=== PATIENT | female | born 1940 | race Caucasian/White ===

== ENCOUNTER → 2018-07-10 | Outpatient (CLI) | payer OTHER ==
[~2018-07-10] MED LIST: ATOR20TA PO; CARV-39 PO; CLON0.2T PO; CLOP75TA52 PO; LOSA100T7 PO; METF500T17 PO; OMNIPAQUE 350 MG/ML, 100ML BOTTLE ONE
== END | disposition home or self-care (01) ==
LOC: RAD 11:31
PROVIDERS: ATTEND Surgery
DX: C50.912 Malignant neoplasm of unspecified site of left female breast (principal)
CPT/HCPCS: 71260; 74177; Q9967

== ENCOUNTER → 2018-07-20 | Outpatient (CLI) | payer OTHER ==
[~2018-07-20] MED LIST changes: -OMNIPAQUE 350 MG/ML, 100ML BOTTLE ONE
== END | disposition home or self-care (01) ==
LOC: ROC 07:26
PROVIDERS: ATTEND Radiology Radiation Oncology
DX: C50.912 Malignant neoplasm of unspecified site of left female breast (principal)
CPT/HCPCS: G0463

== ENCOUNTER → 2018-08-10 | Outpatient (CLI) | payer OTHER ==
[~2018-08-10] MED LIST changes: +AMLO10TA6 PO; +CLOP75TA PO; +GLIP5TAB10 PO
[2018-08-10 10:19] LABS: ALANINE AMINOTRANSFERASE 18 U/L (12-78); ALBUMIN 3.9 g/dL (3.4-5.0); ANION GAP 8 mmol/L (5-15); CALCIUM 8.9 mg/dL (8.5-10.1); CHLORIDE 111 mmol/L (98-107); CREATININE 1.39 mg/dL (0.55-1.02)
[2018-08-10 10:21] LABS: ALKALINE PHOSPHATASE 84 U/L (45-117); BILIRUBIN,TOTAL 0.5 mg/dL (0.2-1.0); TOTAL PROTEIN 7.8 g/dL (6.4-8.2)
== END | disposition home or self-care (01) ==
LOC: STAR 08:16
PROVIDERS: ATTEND Surgery
DX: Z01.818 Encounter for other preprocedural examination (principal); C50.912 Malignant neoplasm of unspecified site of left female breast
CPT/HCPCS: 36415; 80053; 93005

== ENCOUNTER 2018-08-21 11:38 | Day surgery (SDC) | payer MEDICARE, OTHER ==
[~2018-08-21] VITALS: Ht 162.6 cm; Wt 82.8 kg
[2018-08-21] MEDS ORDERED: LIDOCAINE-MPF 1%, 5ML ONE (12:33)
[2018-08-21 13:26] VITALS: BP 162/79
[2018-08-21] MEDS ORDERED: ONDANSETRON 2MG/ML, 2ML IVPush ONE (13:30)
[2018-08-21] MEDS ORDERED: SCOPOLAMINE PATCH, 1.5MG PATCH.TD72 TD ONE (13:30)
[2018-08-21] MEDS ORDERED: GABAPENTIN 300 MG CAPSULE PO ONE (13:30)
[2018-08-21] MEDS ORDERED: ACETAMINOPHEN 500 MG TABLET PO ONE (13:30)
[2018-08-21] MEDS ORDERED: LACTATED RINGERS 1,000 ML IV SCH ×2 (13:43→21:30)
[2018-08-21] MEDS ORDERED: ISOSULFAN BLUE 10 MG/ML, 5ML IV ONE (14:02)
[2018-08-21] MEDS ORDERED: BUPIVACAINE/PF-EPI 0.5% 1:200K ONE (14:02)
[2018-08-21] MEDS ORDERED: FENTANYL PF 250 MCG/5ML ONE (14:09)
[2018-08-21] MEDS ORDERED: CLINDAMYCIN 150 MG/ML, 6ML ONE (14:11)
[2018-08-21] MEDS ORDERED: PROMETHAZINE 25 MG/ML, 1ML IV PRN (14:30)
[2018-08-21] MEDS ORDERED: hydrALAzine 20 MG/ML, 1ML IV PRN (14:30)
[2018-08-21] MEDS ORDERED: LABETALOL 5MG/ML, 20ML IV PRN (14:30)
[2018-08-21] MEDS ORDERED: PROMETHAZINE 12.5 MG SUPP PR PRN (14:30)
[2018-08-21] MEDS ORDERED: ONDANSETRON 2MG/ML, 2ML IV PRN (14:30)
[2018-08-21] MEDS ORDERED: MEPERIDINE/PF 25MG/0.5ML IVPush PRN (14:30)
[2018-08-21] MEDS ORDERED: HYDROmorphone 2 MG/ML, 1ML IVPush PRN (14:30)
[2018-08-21] MEDS ORDERED: FENTANYL PF 100 MCG/2ML IV PRN (14:30)
[2018-08-21] MEDS ORDERED: ONDANSETRON ODT 8 MG PO PRN (14:30)
[2018-08-21] MEDS ORDERED: OXYcodone 5 MG/5 ML ORAL.SOL UDC PO PRN (14:30)
[2018-08-21] MEDS ORDERED: ACETAMINOPHEN 325 MG TABLET PO PRN (14:30)
[2018-08-21] MEDS ORDERED: PROMETHAZINE 25 MG/ML, 1ML IM PRN ×2 (14:30)
[2018-08-21] MEDS ORDERED: MORPHINE SULFATE 4 MG/ML, 1ML IVPush PRN ×2 (14:30→21:30)
[2018-08-21] MEDS ORDERED: PROMETHAZINE 25 MG SUPP PR PRN (14:30)
[2018-08-21] MEDS ORDERED: PHENYLEPHRINE 10 MG/ML ONE (15:04)
[2018-08-21] MEDS ORDERED: PROPOFOL 10 MG/ML, 20ML ONE (15:56)
[2018-08-21] MEDS ORDERED: DEXAMETHASONE 4 MG/ML, 1ML ONE (15:56)
[2018-08-21] MEDS ORDERED: ONDANSETRON 2MG/ML, 2ML ONE ×2 (15:56→18:38)
[2018-08-21] MEDS ORDERED: NEOSTIGMINE 1 MG/ML, 10ML ONE (15:56)
[2018-08-21] MEDS ORDERED: GLYCOPYRROLATE 0.2MG/1ML, 5ML ONE (15:56)
[2018-08-21] MEDS ORDERED: ROCURONIUM 10MG/ML,5ML ONE (15:56)
[2018-08-21] MEDS ORDERED: OXYcodone 5 MG/5 ML ORAL.SOL UDC ONE (18:20)
[2018-08-21] MEDS ORDERED: HYDROmorphone 2 MG/ML, 1ML ONE (18:20)
[2018-08-21] MEDS ORDERED: PROMETHAZINE 25 MG/ML, 1ML ONE (19:15)
[2018-08-21] MEDS ORDERED: ONDANSETRON 2MG/ML, 2ML IVPush PRN (21:30)
[2018-08-21] MEDS ORDERED: ONDA4TAB7 PO (22:28)
[2018-08-21] MEDS ORDERED: HYDR-3240 PO (22:32)
== END 2018-08-21 23:40 | disposition home or self-care (01) ==
LOC: RAD 11:38 → 4NOR 20:48 → OR 23:40
PROVIDERS: ATTEND Surgery
DX: C50.912 Malignant neoplasm of unspecified site of left female breast (principal); N65.1 Disproportion of reconstructed breast; R59.1 Generalized enlarged lymph nodes; E11.22 Type 2 diabetes mellitus with diabetic chronic kidney disease; I12.9 Hypertensive chronic kidney disease with stage 1 through stage 4 chronic kidney disease, or unspecified chronic kidney disease; N18.3 Chronic kidney disease, stage 3 (moderate); Z86.73 Personal history of transient ischemic attack (TIA), and cerebral infarction without residual deficits; I48.91 Unspecified atrial fibrillation; E78.00 Pure hypercholesterolemia, unspecified; Z98.890 Other specified postprocedural states; Z88.1 Allergy status to other antibiotic agents; Z88.8 Allergy status to other drugs, medicaments and biological substances; Z79.84 Long term (current) use of oral hypoglycemic drugs
CPT/HCPCS: 19301; 19318; 38525; 38792; 82962; 88305; 88307; 88329; A9541; J1100; J1170; J2370; J2405; J2550; J2704; J2710; J3010; J3490; J7120; C1729; G0378

== ENCOUNTER → 2018-09-04 | Outpatient (CLI) | payer MEDICARE, OTHER ==
[~2018-09-04] MED LIST changes: -AMLO10TA6 PO; +AMLO10TA8 PO; +HYDR-3240 PO; +LOSA100T14 PO; -LOSA100T7 PO; +ONDA4TAB7 PO
== END | disposition home or self-care (01) ==
LOC: ROC 07:04
PROVIDERS: ATTEND Radiology Radiation Oncology
DX: Z08 Encounter for follow-up examination after completed treatment for malignant neoplasm (principal); C50.412 Malignant neoplasm of upper-outer quadrant of left female breast
CPT/HCPCS: 99213; G0463

== ENCOUNTER → 2018-11-16 | Outpatient (CLI) | payer MEDICARE, OTHER | END | disposition home or self-care (01) | LOC: CFH 09:19 | PROVIDERS: ATTEND Internal Medicine Hematology & Oncology | DX: Z13.820 Encounter for screening for osteoporosis (principal); M85.88 Other specified disorders of bone density and structure, other site; C50.812 Malignant neoplasm of overlapping sites of left female breast | CPT/HCPCS: 77080 ==

== ENCOUNTER 2018-12-05 09:16 | Outpatient (CLI) | payer MEDICARE, OTHER | END 2018-12-05 23:59 | disposition home or self-care (01) | LOC: ROC 09:16 → EDSTATUS 08-13 15:10 | PROVIDERS: ATTEND Radiology Radiation Oncology | DX: C50.412 Malignant neoplasm of upper-outer quadrant of left female breast (principal); C50.212 Malignant neoplasm of upper-inner quadrant of left female breast | CPT/HCPCS: 99213; G0463 ==

== ENCOUNTER 2018-12-17 09:56 | Outpatient (CLI) | payer MEDICARE, OTHER | END 2018-12-17 23:59 | disposition home or self-care (01) | LOC: CFH 09:56 | PROVIDERS: ATTEND Genetic Counselor, MS | DX: I65.23 Occlusion and stenosis of bilateral carotid arteries (principal) | CPT/HCPCS: 93880 ==